=== PATIENT | female | born 1955 | race Caucasian/White ===

== ENCOUNTER 2016-12-26 22:03 | Observation (INO) | payer OTHER ==
[2016-12-26 22:10] VITALS: BMI 25.7
--- NOTE | 2016-12-26 22:50 | PDOC ---
History of Present Illness - General Chief Complaint: Shortness of Breath Stated Complaint: DIFFICULTY BREATHING Time Seen by Provider: 12/26/16 22:34 History Source: Patient Exam Limitations: No Limitations - History of Present Illness Initial Comments: 12/26/16 23:15 This is a 61 yo F brought in to the ER by her due to congestion She has a history of thyroid cancer diagnosed in 2009 s/p multiple chemotherapeutic agents to which the patient had adverse reactions Per the , this patient has been on a new chemotherapeutic agent since the beginning of this year she has also been getting radiation, with subsequent tongue swelling, vocal changes, difficulty speaking Pt was brought in to the ER by her due to congestion Pt was at her baseline when at approximately 8pm, she developed congestion No chest pain Her called the Oncologist and PMH: Migraines, thyroid cancer PSH: thyroidectomy, Cervical spine ayleen, Cancer resection from the left hip Meds: Dexamethasone, Pantoprazole, Calcitriol, Keppra ALL: IV contrast --> difficulty breathing Social: GENERAL/CONSTITUTIONAL: No: fever, chills, weakness, loss of appetite. HEAD, EYES, EARS, NOSE AND THROAT: Yes: tongue swelling, radiation changes No: change in vision, sore throat, throat swelling. CARDIOVASCULAR: No: chest pain, lightheadedness, palpitations, syncope RESPIRATORY: Yes: congestion, shortness of breath No: cough, wheezing GASTROINTESTINAL: No: nausea, vomiting, diarrhea, abdominal pain GENITOURINARY: No: dysuria, hematuria, MUSCULOSKELETAL: No: back pain, neck pain, joint pain SKIN AND BREASTS: No: lesions, pallor, rash or easy bruising. NEUROLOGIC: No: headache, vertigo, paresthesias, weakness ENDOCRINE: No: unexplained weight gain or loss HEMATOLOGIC/LYMPHATIC: No: anemia, easy bleeding, swelling nodes. GENERAL: The patient is in no acute distress, coarse breathing. HEAD: Normal with no signs of trauma. EYES: PERRLA, EOMI, sclera anicteric, conjunctiva clear. ENT: Ears normal, nares patent, oropharynx irritated, tongue swollen with white plaques NECK: Normal range of motion, supple without lymphadenopathy LUNGS: Rhoncherous, coarse breath sounds diffusely HEART: Regular rate and rhythm, normal S1 and S2 without murmur, rub or gallop. ABDOMEN: Soft, nontender, normoactive bowel sounds. No guarding, no rebound. EXTREMITIES: Normal range of motion, no edema. No clubbing or cyanosis. NEUROLOGICAL: Cranial nerves II through XII grossly intact. Normal speech. No focal neurological deficits. MUSCULOSKELETAL: Back non-tender to palpation, no CVA tenderness SKIN: Warm, Dry, normal turgor, no rashes or lesions noted. 12/27/16 01:51 12/27/16 01:58 12/27/16 02:15 Past History - Past Medical History Allergies/Adverse Reactions: Allergies Allergy/AdvReac Type Severity Reaction Status Date / Time iv contrast Allergy Uncoded 12/26/16 22:11 Home Medications: Ambulatory Orders Calcitriol 0 mg PO DAILY 12/27/16 Dexamethasone 1 mg PO DAILY 12/27/16 Keppra - 0 mg PO BID 12/27/16 Levothyroxine 0 mg PO DAILY 12/27/16 Pantoprazole Sodium [Protonix -] 20 mg PO BID 12/27/16 Cancer: Yes (thyroid) - Psycho/Social/Smoking Cessation Hx Suicidal Ideation: No Smoking History: Never smoked *Physical Exam - Vital Signs Last Vital Signs Temp Pulse Resp BP Pulse Ox 98.6 F 98 H 18 149/100 95 12/26/16 22:07 12/26/16 22:07 12/26/16 22:07 12/26/16 22:07 12/26/16 22:07 ED Treatment Course - LABORATORY CBC & Chemistry Diagram: 12/27/16 00:01 12/27/16 00:01 Medical Decision Making - Medical Decision Making Pt has a history on thyroid cancer on chemo and xrt presenting to the ER with a complaint of congestion No fevers or chills No chest pain Pt given Robitussin 12/27/16 01:10 Laboratory Tests 12/27/16 12/27/16 12/27/16 00:01 00:01 00:01 WBC 4.7 Hgb 11.0 Hct 34.7 Plt Count 148 Neutrophils % 76.2 Lymphocytes % 16.2 Sodium 139 Potassium 4.0 Chloride 101 Carbon Dioxide 28 BUN 24 H Creatinine 0.7 Random Glucose 92 Lactic Acid 1.280 12/27/16 01:14 Upon re assessment, congestion is better Pt is resting comfortably 12/27/16 01:[address] Guidry oncology department at [facility] She felt it was safest to keep this patient for observation case reviewed with Dr. Michaud Will place on observation 12/27/16 02:19 12/27/16 02:20 EXAM: X-ray chest IMAGES: 2 INDICATION: Shortness of breath DATE OF SERVICE: 2016-12-26 23:17:31.0 COMPARISON: none FINDINGS: Heart size is normal. Left basilar infiltrate is suspicious for pneumonia. No pleural effusion or pulmonary edema. Patient is likely status post cervical fusion. IMPRESSION: Suspected left basilar pneumonia. THIS DOCUMENT HAS BEEN ELECTRONICALLY SIGNED Tyrone Dhillon MD *DC/Admit/Observation/Transfer Diagnosis at time of Disposition: Chest congestion - Discharge Dispostion Condition at time of disposition: Stable Admit: Yes - Referrals Referrals: Angle Zurita MD [Primary Care Provider] -
[2016-12-27 00:23] LABS: BASOPHIL 0.3 % (0-2.0); EOSINOPHIL 2.5 % (0-4.5); MCH 25.7 pg (25.7-33.7); MCHC 31.6 g/dl (32.0-36.0); MEAN CELL VOLUME 81.1 fl (80-96); MEAN PLT VOLUME 7.2 fl (7.5-11.1); NEUTROPHILS 76.2 % (42.8-82.8); PLATELET COUNT 148 K/MM3 (134-434); RDW 17.5 % (11.6-15.6); WHITE BLOOD COUNT 4.7 K/mm3 (4.0-10.0)
[2016-12-27 00:45] LABS: ALBUMIN 3.7 g/dl (3.4-5.0); ALK PHOS 64 U/L (45-117); ANION GAP 10 (8-16); BILIRUBIN,TOTAL 0.5 mg/dL (0.2-1.0); CO2 28 mmol/L (21-32); COCKROFT - GAULT 91.7915; CREATININE 0.7 mg/dL (0.55-1.02); GLUCOSE,RANDOM 92 mg/dL (74-106); SGOT/AST 24 U/L (15-37); SGPT/ALT 28 U/L (12-78); TOT PROT 7.2 g/dl (6.4-8.2)
--- NOTE | 2016-12-27 02:08 | HP ---
Admitting History and Physical - Admission Chief Complaint: chest congestion History of Present Illness: 61 yo f w hx of thyroid cancer s/p multiple XRT and receiving chemo presents to the ER for chest congestion", she reports it started 3 days ago. She states she has been coughing up clear sputum. She denies sob, cp, fevers, chills, bodyaches , nausea, vomiting, diarrhea, rhinorrhea, sneezing. PMH/PSh- thyroid cancer s/p multiple XRT Social- Denies alcohol, tobacco, rec drugs Famhx- Denies famhx of cancer Ros neg except for HPI Physical Gen- in nad Hent-at/nc, thrush on tongue, tongue folded, neck supple, trachea mid-line Resp- lungs ctab, no ronchi, no rales, no wheeze Cards- s1s2 heard, no JVD, no leg edema Musk-normal arom bue/ble Skin- no erythema, intact Psych- cooperative, no agitation, forgetful Neuro-cn 2-12 grossly intact, speech clear, angella, no seizures Gi- soft non-tender, no rebound, no guarding, no rigidity Prob list ?PNA Oral john THyroid cancer A/P- 61 yo f w hx of thyroid cancer s/p multiple XRT who presents to the ER for eval of chest congestion and placed in obs for their emergent condition 1. ?PNA CXR suspicious for L basilar PNA Per ER attending oncologist recommends observation Started on LVQ BC pending 2. Oral john Nystatin solution Po 3. Thyroid cancer Pt reports on chemo(?name) and getting XRT opt FU w oncologist opt DVT prophy SCD, OOB, expect less than 2 night stay FEN Dispo- Obs for ? PNA History Source: Patient Limitations to Obtaining History: No Limitations - Smoking History Smoking history: Never smoked Home Medications - Allergies Allergies/Adverse Reactions: Allergies Allergy/AdvReac Type Severity Reaction Status Date / Time Iodinated Contrast Media - Allergy Verified 12/27/16 05:10 Oral and - Home Medications Home Medications: Ambulatory Orders Calcitriol 0.25 mg PO DAILY 12/27/16 Dexamethasone 1 mg PO DAILY 12/27/16 Fluconazole 100 mg PO DAILY #10 tablet 12/27/16 Keppra - 500 mg PO BID 12/27/16 Levofloxacin [Levaquin] 500 mg PO DAILY #4 tablet 12/27/16 Levothyroxine 75 mg PO DAILY 12/27/16 Pantoprazole Sodium [Protonix -] 20 mg PO BID 12/27/16 Physical Examination Vital Signs: Vital Signs Temperature 98.6 F 12/26/16 22:07 Pulse Rate 98 H 12/26/16 22:07 Respiratory Rate 18 12/26/16 22:07 Blood Pressure 149/100 12/26/16 22:07 O2 Sat by Pulse Oximetry (%) 95 12/26/16 22:07 Labs: CBC, BMP 12/27/16 00:01 12/27/16 00:01 Visit type - Emergency Visit Emergency Visit: Yes ED Registration Date: 12/27/16 Care time: The patient presented to the Emergency Department on the above date and was hospitalized for further evaluation of their emergent condition. - New Patient This patient is new to me today: Yes Date on this admission: 12/27/16 - Critical Care Critical Care patient: No
[2016-12-27] MEDS ORDERED: LEVOFLOXACIN 750 MG IVPB 150 ML IVPB ONE (02:13)
[2016-12-27] MEDS ORDERED: ONDANSETRON 4 MG/2 ML VIAL IVPB PRN (02:14)
[2016-12-27] MEDS ORDERED: ALBUTEROL SO4 2.5/IPRATROPIUM 0.5 INH SOL 3 ML VIAL.NEB. NEB PRN (02:15)
[2016-12-27] MEDS ORDERED: guaiFENesin/CODEINE 5 ML UNIT-DOSE CUPS PO PRN (02:15)
[2016-12-27] MEDS: ACETAMINOPHEN 325 MG TABLET (FP) PO PRN ×2 (03:19→12:32)
[2016-12-27] MEDS: NYSTATIN 500,000 UNITS/5 ML SUSPENSION PO SCH ×2 (06:33→12:31)
[2016-12-27 08:25] LABS: BASOPHIL 0.3 % (0-2.0); EOSINOPHIL 4.6 % (0-4.5); MCH 26.4 pg (25.7-33.7); MCHC 32.5 g/dl (32.0-36.0); MEAN CELL VOLUME 81.1 fl (80-96); MEAN PLT VOLUME 7.1 fl (7.5-11.1); NEUTROPHILS 71.9 % (42.8-82.8); PLATELET COUNT 130 K/MM3 (134-434); RDW 17.5 % (11.6-15.6); WHITE BLOOD COUNT 4.5 K/mm3 (4.0-10.0)
[2016-12-27 08:50] LABS: CALCIUM 8.6 mg/dL (8.5-10.1); COCKROFT - GAULT 91.7915; CREATININE 0.7 mg/dL (0.55-1.02)
[2016-12-27] MEDS ORDERED: DEXAMETHASONE 0.5 MG TABLET PO SCH (10:00)
[2016-12-27] MEDS ORDERED: PANTOPRAZOLE 20 MG TABLET (FP) PO SCH (10:00)
[2016-12-27] MEDS ORDERED: PT OWN MED DRAWER 7, Y5N ONE (10:17)
[2016-12-27] MEDS ORDERED: levETIRAcetam 500 MG TABLET (FP) PO SCH (12:00)
[2016-12-27] MEDS ORDERED: CALCITRIOL 0.25 MCG CAPSULE (FP) PO SCH (12:00)
[2016-12-27] MEDS ORDERED: LEVOTHYROXINE NA 75 MCG TABLET (FP) PO SCH (12:30)
[2016-12-27 14:16] VITALS: BP 122/73; PULSE 98; TEMP 98.1
--- NOTE | 2016-12-27 17:19 | DS ---
Physical Examination Vital Signs: Vital Signs Temperature 98.1 F 12/27/16 14:15 Pulse Rate 98 H 12/27/16 14:15 Respiratory Rate 18 12/27/16 14:15 Blood Pressure 122/73 12/27/16 14:15 O2 Sat by Pulse Oximetry (%) 98 12/27/16 09:00 Findings/Remarks: antonio any SOB, has cough with productionof smal amount of white sputum has no dysphagia or sore throat. No drooling. denied any fever at home .. her tongue bothers her . Constitutional: Yes: Well Nourished, No Distress, Calm Eyes: Yes: Conjunctiva Clear, EOM Intact HENT: Yes: Atraumatic, Normocephalic, Thrush (on tongue , oral mucosa and oropharynx), Other (no stridor). No: Drooling, Epistaxis, Hoarseness Neck: Yes: Supple Cardiovascular: Yes: Regular Rate and Rhythm, S1, S2. No: JVD, Murmur Respiratory: Yes: Regular, CTA Bilaterally Edema: No Labs: CBC, BMP 12/27/16 06:45 12/27/16 06:45 Discharge Summary Reason For Visit: CHEST CONGESTION Hospital Course: 61 y/o lady with h/o thyroid cancer s/p multiple XRT and receiving chemo presents to ER with cough and white sputum production, with no fever or CP . at presentation, her blood work did not show any leukocytosis or electrolyte abn. she also did not have fever or tachypnia . her cxray showed LLL infiltrate, and because she is immunocompromised , she was started on levaquin fro 5 days . she was found to have naseem-pharyngeal thrush and was started on fluconazol , as the rate of recurrence is less , adn she is on current steroids treatment and immunocompromised at the same time. Her LFTS were NL. She reported double vision in R eye but this has been chronic x 1 year, and she reported an MRI about a month ago. She is being w/u by her oncologist dispo : home today , has a walker and has 24 hr services. f/u with PCP and oncologist . Condition: Stable - Instructions Diet, Activity, Other Instructions: please follow with your doctor in few days follow with your oncologist as per your routine if you develop fever , or shortness of breath or if your phlegm turns green , please call your doctor . Take fluconazole for your fungal infection ( in mouth and throat ) for 10 days . if it does not resolve , you might need further treatment please take levaquin for possible pneumonia ( start tomorrow AM FOR 4 days ) Referrals: Angle Zurita MD [Primary Care Provider] - 1 Week Disposition: HOME - Home Medications Comprehensive Discharge Medication List: Ambulatory Orders Calcitriol 0.25 mg PO DAILY 12/27/16 Dexamethasone 1 mg PO DAILY 12/27/16 Fluconazole 100 mg PO DAILY #10 tablet 12/27/16 Keppra - 500 mg PO BID 12/27/16 Levofloxacin [Levaquin] 500 mg PO DAILY #4 tablet 12/27/16 Levothyroxine 75 mg PO DAILY 12/27/16 Pantoprazole Sodium [Protonix -] 20 mg PO BID 12/27/16 This patient is new to me today: Yes Date on this admission: 12/27/16 Emergency Visit: No Critical Care patient: No - Discharge Referral Referred to [facility] No
[2016-12-28] MEDS ORDERED: LEVOFLOXACIN 750 MG IVPB 150 ML IVPB SCH (10:00)
== END 2016-12-27 14:47 | disposition home or self-care (01) ==
LOC: JER 22:03 → JERBED 12-27 02:12 → J8W 12-27 04:26
PROVIDERS: ADMIT Internal Medicine; ATTEND Internal Medicine
DX: J18.9 Pneumonia, unspecified organism (principal); B37.0 Candidal stomatitis; C73 Malignant neoplasm of thyroid gland; Z92.21 Personal history of antineoplastic chemotherapy
CPT/HCPCS: 36415; 71010-TC; 80048; 80053; 83605; 85025; 87040; 99285-25; G0378; J8540

== ENCOUNTER 2017-01-15 23:50 | Inpatient (IN) | payer OTHER ==
[2017-01-16] MEDS ORDERED: ALBUTEROL SO4 2.5/IPRATROPIUM 0.5 INH SOL 3 ML VIAL.NEB. NEB ONE ×2 (01:29→02:10)
--- NOTE | 2017-01-16 01:44 | PDOC ---
History of Present Illness - General History Source: Patient Exam Limitations: No Limitations - History of Present Illness Initial Comments: 01/16/17 01:45 The patient is a 61 year old female with a significant past medical history of Thyroid CA s/p thyroid removal (on chemo) who presents to the ED with complaints of shortness of breath since earlier today. The patient was recently seen in the ED on 12/26/16 with similar symptoms and was diagnosed with pneumonia. Patient reports a sudden onset of shortness of breath and wheezing earlier this evening. Patient reports she feels like she is short of breath because her neck is swollen. Patient reports chills associated with present symptoms. She denies loss of appetite or changes in eating. Patients last chemo treatment was on 12/30/16, her next treatment is on . Denies fevers. Denies difficulty swallowing. Denies chest pain or palpitations. Denies headache or dizziness. Denies abdominal pain, nausea, vomiting, or diarrhea. Denies any other symptoms. <Justina Moser - Last Filed: 01/16/17 05:55> <Doris Guidry - Last Filed: 01/17/17 06:20> - General Chief Complaint: Shortness of Breath Stated Complaint: SOB Time Seen by Provider: 01/16/17 00:50 Past History <Justina Moser - Last Filed: 01/16/17 05:55> - Past Medical History Cancer: Yes (thyroid) GI Disorders: Yes (GERD) Seizures: Yes - Psycho/Social/Smoking Cessation Hx Anxiety: No Suicidal Ideation: No Smoking History: Never smoked Have you smoked in the past 12 months: No Information on smoking cessation initiated: No Hx Alcohol Use: No Drug/Substance Use Hx: No Substance Use Type: None <Doris Guidry - Last Filed: 01/17/17 06:20> - Past Medical History Allergies/Adverse Reactions: Allergies Allergy/AdvReac Type Severity Reaction Status Date / Time Iodinated Contrast Media - Allergy Verified 01/16/17 01:05 Oral and Home Medications: Ambulatory Orders Calcitriol 0.25 mg PO DAILY 12/27/16 Dexamethasone 1 mg PO DAILY 12/27/16 Fluconazole 100 mg PO DAILY #10 tablet 12/27/16 Keppra - 500 mg PO BID 12/27/16 Levofloxacin [Levaquin] 500 mg PO DAILY #4 tablet 12/27/16 Levothyroxine 75 mg PO DAILY 12/27/16 Pantoprazole Sodium [Protonix -] 20 mg PO BID 12/27/16 Unobtainable 01/16/17 Review of Systems - Review of Systems Able to Perform ROS?: Yes Comments:: 01/16/17 01:45 CONSTITUTIONAL: + chills Absent: fever, diaphoresis, generalized weakness, malaise, loss of appetite HEENT: + throat swelling Absent: rhinorrhea, nasal congestion, throat pain, difficulty swallowing, mouth swelling, ear pain, eye pain, visual Changes CARDIOVASCULAR: Absent: chest pain, syncope, palpitations, irregular heart rate, lightheadedness , peripheral edema RESPIRATORY: + shortness of breath, wheezing Absent: cough, dyspnea with exertion, orthopnea, stridor, hemoptysis GASTROINTESTINAL: Absent: abdominal pain, abdominal distension, nausea, vomiting, diarrhea, constipation, melena, hematochezia GENITOURINARY: Absent: dysuria, frequency, urgency, hesitancy, hematuria, flank pain, genital pain MUSCULOSKELETAL: Absent: myalgia, arthralgia, joint swelling SKIN: Absent: rash, itching, pallor HEMATOLOGIC/IMMUNOLOGIC: Absent: easy bleeding, easy bruising, lymphadenopathy, frequent infections ENDOCRINE: Absent: unexplained weight gain, unexplained weight loss, heat intolerance, cold intolerance NEUROLOGIC: Absent: headache, focal weakness or paresthesias, dizziness, unsteady gait, seizure, mental status changes, bladder or bowel incontinence PSYCHIATRIC: Absent: anxiety, depression, suicidal or homicidal ideation, hallucinations. <Justina Moser - Last Filed: 01/16/17 05:55> *Physical Exam - Vital Signs Last Vital Signs Temp Pulse Resp BP Pulse Ox 99.7 F H 93 H 24 156/86 95 01/16/17 01:01 01/16/17 01:01 01/16/17 01:01 01/16/17 01:01 01/16/17 01:01 - Physical Exam Comments: 01/16/17 01:45 GENERAL: voice is unchanged. Well developed, well nourished. Awake and alert. No acute distress. HEENT: + Eyes are proapoptotic, tongue deviates to left secondary to nerve damage from chemotherapy. Normocephalic, atraumatic. PERRLA, EOMI. No conjunctival pallor. Sclera are non-icteric. Moist mucous membranes. Oropharynx is clear. NECK: Supple. Full ROM. No JVD. Carotid pulses 2+ and symmetric, without bruits. No thyromegaly. NCo lymphadenopathy. CARDIOVASCULAR: Regular rate and rhythm. No murmurs, rubs, or gallops. Distal pulses are 2+ and symmetric. PULMONARY: + Wheezing in all lung gomez. Lungs clear to auscultation bilaterally. No rales or rhonchi. ABDOMINAL: Soft. Non-tender. Non-distended. No rebound or guarding. No organomegaly. Normoactive bowel sounds. MUSCULOSKELETAL Normal range of motion at all joints. No bony deformities or tenderness. No CVA tenderness. EXTREMITIES: No cyanosis. No clubbing. No edema. No calf tenderness. SKIN: Warm and dry. Normal capillary refill. No rashes. No jaundice. NEUROLOGICAL: Alert, awake, appropriate. Cranial nerves 2-12 intact. No deficits to light touch and temperature in face, upper extremities and lower extremities. No motor deficits in the in face, upper extremities and lower extremities. Normoreflexic in the upper and lower extremities. Normal speech. Toes are down- going bilaterally. Gait is normal without ataxia. PSYCHIATRIC: Cooperative. Good eye contact. Appropriate mood and affect. <Justina Moser - Last Filed: 01/16/17 05:55> - Vital Signs Last Vital Signs Temp Pulse Resp BP Pulse Ox 99.7 F H 93 H 24 156/86 95 01/16/17 01:01 01/16/17 01:01 01/16/17 01:01 01/16/17 01:01 01/16/17 01:01 <Doris Guidry - Last Filed: 01/17/17 06:20> ED Treatment Course - LABORATORY CBC & Chemistry Diagram: 01/16/17 05:33 01/16/17 05:33 <Justina Moser - Last Filed: 01/16/17 05:55> - LABORATORY CBC & Chemistry Diagram: 01/16/17 05:33 01/16/17 05:33 - RADIOLOGY Radiology Studies Ordered: Category Date Time Status CERVICAL SPINE CT W/O CONTR [CT] Stat CT Scan 01/16/17 01:[address] WITHOUT CONTRAST [CT] Stat CT Scan 01/16/17 01:29 Ordered <Doris Guidry - Last Filed: 01/17/17 06:20> Medical Decision Making - Medical Decision Making 01/16/17 02:[address] Jolly at 02:09. 01/16/17 05:[address] Aldana at 5:55 <Justina Moser - Last Filed: 01/16/17 05:55> - Medical Decision Making 01/16/17 04:22 Patient Name: Halina Perales THIS IS A PRELIMINARYREPORT FROM [facility] EXAM: X-ray chest IMAGES: 2 INDICATION: Shortness of breath DATE OF SERVICE: 2016-12-26 23:17:31.0 COMPARISON: none FINDINGS: Heart size is normal. Left basilar infiltrate is suspicious for pneumonia. No pleural effusion or pulmonary edema. Patient is likely status post cervical fusion. IMPRESSION: Suspected left basilar pneumonia. THIS DOCUMENT HAS BEEN ELECTRONICALLY SIGNED 01/16/17 05:22 Patient Name: Halina Perales THIS IS A PRELIMINARY REPORT FROM [facility] Exam: CT of the cervical spine without contrast Technique: Thin contiguous axial images through the cervical vertebra were obtained without use of contrast. Coronal and sagittal reconstructed images were generated. Number of images:203 Indication: Concern of local cord swelling, status post chemotherapy 2 weeks prior Date of service: 2017-01-16 03:59:05.0 Comparison: None Impression: 1. There is asymmetric soft tissue thickening at the level of the glottis on the right side. There is extension inferiorly to the subglottic region. This produces narrowing of the airway at the level of the glottis. Mass must be considered. 2. There is marked enlargement of the right thyroid lobe. This is consistent with malignancy given patient's history of thyroid cancer. 3. There are is a large destructive partially demonstrated expansile mass involving the clivus. Additionally, there is an expansile destructive lytic mass involving the spinous process of T1 and also an expansile destructive lytic mass involving the involving the anterior aspect of the left first rib. 4. There are a spinal fixation of C2-C5. 5. There is no definitive evidence of acute vertebral body compression fracture or subluxation seen. 6. There is evidence of severe bilateral mastoiditis and otitis media. Clinical correlation is advised for airway compromise. Please note, the study is suboptimal for evaluation of the pharynx. I recommend further evaluation with contrast-enhanced CT or MRI of the neck. 01/17/17 06:17 Pt admitted for dyspnea and swelling of her glottis. She has known thyroid tumor, and now comes after having had received chemo 2 weeks ago. Pt sees Dr. Rodrigues at [facility]. Her voice is unchanged from previous as per her . Pt has chronic pains secondary to her metastatic disease. She states that breathing is more difficult now than usual. She will be admitted for observation and for intubation as needed. Also ENT will be consulted for upper airway endoscopy. 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
[2017-01-16] MEDS ORDERED: RACEPINEPHRINE IH SOL 2.25% 11.25 MG/0.5 ML VIAL IH ONE (02:07)
[2017-01-16] MEDS ORDERED: RACEPINEPHRINE IH SOL 2.25% 11.25 MG/0.5 ML VIAL NEB ONE (02:10)
[2017-01-16 05:53] LABS: BASOPHIL 0.3 % (0-2.0); EOSINOPHIL 0.2 % (0-4.5); MCHC 31.9 g/dl (32.0-36.0); MEAN CELL VOLUME 81.6 fl (80-96); MEAN PLT VOLUME 7.5 fl (7.5-11.1); NEUTROPHILS 80.4 % (42.8-82.8); PLATELET COUNT 122 K/MM3 (134-434); RDW 16.7 % (11.6-15.6); WHITE BLOOD COUNT 5.5 K/mm3 (4.0-10.0)
[2017-01-16] MEDS ORDERED: DEXAMETHASONE SOD PHOSPHATE 10 MG/1 ML VIAL IVPB ONE (06:07)
[2017-01-16] MEDS ORDERED: DEXAMETHASONE SOD PHOSPHATE 10 MG/1 ML VIAL ONE (06:15)
[2017-01-16 06:20] LABS: ALBUMIN 3.5 g/dl (3.4-5.0); ALK PHOS 67 U/L (45-117); ANION GAP 11 (8-16); BILIRUBIN,TOTAL 0.4 mg/dL (0.2-1.0); CALCIUM 8.8 mg/dL (8.5-10.1); CO2 25 mmol/L (21-32); COCKROFT - GAULT 82.6115; CREATININE 0.7 mg/dL (0.55-1.02); GLUCOSE,RANDOM 100 mg/dL (74-106); SGPT/ALT 18 U/L (12-78)
[2017-01-16 06:24] LABS: SGOT/AST 33 U/L (15-37)
[2017-01-16] MEDS ORDERED: LEVOFLOXACIN 500 MG IVPB 100 ML IVPB ONE ×2 (08:33→09:14)
--- NOTE | 2017-01-16 10:18 | HP ---
Admitting History and Physical - Primary Care Physician PCP: Jenae Zurita - Admission Chief Complaint: sob x 2 days History of Present Illness: The patient is a 61 year old female with a significant past medical history of Thyroid CA s/p thyroid removal (on chemo) who presents to the ED with complaints of shortness of breath since earlier today. The patient was recently seen in the ED on 12/26/16 with similar symptoms and was diagnosed with pneumonia. Patient reports a sudden onset of shortness of breath and wheezing earlier this evening. Patient reports she feels like she is short of breath because her neck is swollen. Patient reports chills associated with present symptoms. She denies loss of appetite or changes in eating. Patients last chemo treatment was on 12/30/16, her next treatment is on . Denies fevers. Denies difficulty swallowing. Denies chest pain or palpitations. Denies headache or dizziness. Denies abdominal pain, nausea, vomiting, or diarrhea. Denies any other symptoms. case discussed with er physician artist consultant today chart reviewed case also discussed with icu attending today Pt seen / examined in icu at present comfortable denies pain. breathing ok denies fever/ +ve chills Denies abd pain denies headche/ dizziness Also restarted on abx for possible pneumonia History Source: Patient, Medical Record Limitations to Obtaining History: Clinical Condition - Smoking History Smoking history: Never smoked Have you smoked in the past 12 months: No - Alcohol/Substance Use Hx Alcohol Use: No Home Medications - Allergies Allergies/Adverse Reactions: Allergies Allergy/AdvReac Type Severity Reaction Status Date / Time Iodinated Contrast Media - Allergy Verified 01/16/17 01:05 Oral and - Home Medications Home Medications: Ambulatory Orders Calcitriol 0.25 mg PO DAILY 12/27/16 Dexamethasone 1 mg PO DAILY 12/27/16 Fluconazole 100 mg PO DAILY #10 tablet 12/27/16 Keppra - 500 mg PO BID 12/27/16 Levofloxacin [Levaquin] 500 mg PO DAILY #4 tablet 12/27/16 Levothyroxine 75 mg PO DAILY 12/27/16 Pantoprazole Sodium [Protonix -] 20 mg PO BID 12/27/16 Unobtainable 01/16/17 Review of Systems Unable to obtain ROS, reason: see [place] Physical Examination Vital Signs: Vital Signs Temperature 98.4 F 01/16/17 09:45 Pulse Rate 95 H 05/27/17 09:45 Respiratory Rate 13 01/16/17 09:45 Blood Pressure 112/79 01/16/17 09:45 O2 Sat by Pulse Oximetry (%) 95 01/16/17 09:45 Constitutional: Yes: Calm Eyes: Yes: Conjunctiva Clear HENT: Yes: Other (clear) Neck: Yes: Supple, Other (scar +) Cardiovascular: Yes: Regular Rate and Rhythm Respiratory: Yes: Rhonchi (scattered) Gastrointestinal: Yes: Normal Bowel Sounds, Soft Edema: No Imaging - Results Cat Scan: Report Reviewed Problem List - Problems (1) Glottic edema Code(s): J38.4 - EDEMA OF LARYNX (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 cc time 40 min
[2017-01-16] MEDS ORDERED: ACETAMINOPHEN 325 MG TABLET (FP) PO PRN (10:20)
--- NOTE | 2017-01-16 10:30 | CONSULT ---
Consult Consult Specialty:: PULM/CCM Referred by:: ANNA Reason for Consultation:: Abnormal CT - History of Present Illness Chief Complaint: SOB History of Present Illness: 61 F, Thyroid CA s/p thyroidectomy on chemotherapy and listed medical history. Admitted via the ER for shortness of breath of 1 to 2 days duration. No travel history or sick contacts. No fever or chills. No hemoptysis. Patient does report significant mucous production but does not feel that the mucous is pooling in her airway. No sensation of choking. No difficulty in swallowing. - History Source History Provided By: Patient Limitations to Obtaining History: Poor Historian - Alcohol/Substance Use Hx Alcohol Use: No - Smoking History Smoking history: Never smoked Have you smoked in the past 12 months: No Home Medications - Allergies Allergies/Adverse Reactions: Allergies Allergy/AdvReac Type Severity Reaction Status Date / Time Iodinated Contrast Media - Allergy Verified 01/16/17 01:05 Oral and - Home Medications Home Medications: Ambulatory Orders Calcitriol 0.25 mg PO DAILY 12/27/16 Dexamethasone 1 mg PO DAILY 12/27/16 Fluconazole 100 mg PO DAILY #10 tablet 12/27/16 Keppra - 500 mg PO BID 12/27/16 Levofloxacin [Levaquin] 500 mg PO DAILY #4 tablet 12/27/16 Levothyroxine 75 mg PO DAILY 12/27/16 Pantoprazole Sodium [Protonix -] 20 mg PO BID 12/27/16 Unobtainable 01/16/17 Review of Systems - Review of Systems Constitutional: reports: Malaise, Weakness. denies: Chills, Fever, Night Sweats Eyes: reports: No Symptoms HENT: reports: Nasal Congestion, Throat Pain. denies: Difficult Swallowing, Ear Discharge, Ear Pain, Gingival Bleeding, Hearing Loss, Mouth Swelling, Toothache, Ringing in Ears Neck: reports: Lumps, Stiffness Cardiovascular: reports: Shortness of Breath. denies: Chest Pain, Edema, Palpitations Respiratory: reports: Cough, Snoring, SOB, SOB on Exertion. denies: Hemoptysis , Wheezing Gastrointestinal: reports: No Symptoms Genitourinary: reports: No Symptoms Breasts: reports: No Symptoms Reported Musculoskeletal: reports: No Symptoms Integumentary: reports: No Symptoms Neurological: reports: No Symptoms Endocrine: reports: No Symptoms Hematology/Lymphatic: reports: No Symptoms Psychiatric: reports: No Symptoms Physical Exam Vital Signs: Vital Signs Temperature 98.7 F 01/16/17 10:20 Pulse Rate 100 H 01/16/17 10:20 Respiratory Rate 18 01/16/17 10:20 Blood Pressure 144/90 01/16/17 10:20 O2 Sat by Pulse Oximetry (%) 95 01/16/17 09:45 Constitutional: Yes: No Distress Eyes: Yes: Conjunctiva Clear, EOM Intact HENT: Yes: Atraumatic, Normocephalic Neck: Yes: Supple, Trachea Midline Cardiovascular: Yes: Regular Rate and Rhythm Respiratory: Yes: Cough, On Nasal O2, Rhonchi. No: Accessory Muscle Use, Rales , SOB, Stridor, Tachypnea, Wheezes Gastrointestinal: Yes: Normal Bowel Sounds, Soft ...Rectal Exam: Yes: Deferred Renal/: Yes: WNL Musculoskeletal: Yes: Back Pain Extremities: Yes: WNL Edema: No Peripheral Pulses WNL: Yes Integumentary: Yes: WNL Neurological: Yes: WNL, Alert, Oriented ...Motor Strength: WNL Psychiatric: Yes: WNL, Alert, Oriented Imaging - Results Cat Scan: Report Reviewed, Image Reviewed Problem List - Problems (1) Glottic edema Code(s): J38.4 - EDEMA OF LARYNX (2) Glottic stenosis Code(s): J38.6 - STENOSIS OF LARYNX (3) Metastasis from thyroid cancer Code(s): C79.9 - SECONDARY MALIGNANT NEOPLASM OF UNSPECIFIED SITE C73 - MALIGNANT NEOPLASM OF THYROID GLAND (4) SOB (shortness of breath) Code(s): R06.02 - SHORTNESS OF BREATH (5) Thyroid malignant neoplasm Code(s): C73 - MALIGNANT NEOPLASM OF THYROID GLAND (6) Chest congestion Code(s): R09.89 - OTH SYMPTOMS AND SIGNS INVOLVING THE CIRC AND RESP SYSTEMS Assessment/Plan Steroids Noted empiric ABX O2 as needed Would keep NPO until she is evaluated by ENT (they have been called) VTE prophylaxis Decolonization ICU monitoring Thank you Dr Luong critical care time spent in reviewing chart, evaluating patient and formulating plan 40 min
[2017-01-16] MEDS ORDERED: ALBUTEROL SO4 0.083% IH SOL 2.5 MG/3 ML VIAL.NEB. NEB PRN (10:38)
[2017-01-16 10:45] VITALS: BMI 11.7
[2017-01-16] MEDS ORDERED: DEXAMETHASONE 0.5 MG TABLET PO SCH (11:30)
[2017-01-16] MEDS: ENOXAPARIN NA (PORCINE) 40 MG/0.4 ML DISP.SYRIN SQ SCH (13:39)
[2017-01-16] MEDS: DEXAMETHASONE SOD PHOSPHATE 10 MG/1 ML VIAL IVPB SCH (17:13)
[2017-01-16 20:13] VITALS: TEMP 98.4
--- NOTE | 2017-01-16 20:48 | CON.ENT ---
Consult Consult Specialty:: ENT Referred by:: Dr. Luong Reason for Consultation:: thyroid cancer, throat symptoms - History of Present Illness Chief Complaint: throat symptoms, breathing trouble History of Present Illness: 61 yo F with known hx of metastatic thyroid carcinoma, s/p surgery, presently undergoing chemotherapy at [facility], last treatment several weeks ago, next treatment scheduled for within one week. presented to Emergency department last night with throat symptoms and some breathing trouble had recent ED visit early December 2016 dx pneumonia and had outpatient oral antibiotic therapy treated with nebulizer treatment and oral steroids presently feeling better with breathing - History Source History Provided By: Patient, Medical Record - Past Medical History Heme/Onc: Yes: Cancer (metastatic thyroid cancer) - Alcohol/Substance Use Hx Alcohol Use: No - Smoking History Smoking history: Never smoked Have you smoked in the past 12 months: No Home Medications - Allergies Allergies/Adverse Reactions: Allergies Allergy/AdvReac Type Severity Reaction Status Date / Time Iodinated Contrast Media - Allergy Verified 01/16/17 01:05 Oral and - Home Medications Home Medications: Ambulatory Orders Calcitriol 0.25 mg PO DAILY 12/27/16 Dexamethasone 1 mg PO DAILY 12/27/16 Fluconazole 100 mg PO DAILY #10 tablet 12/27/16 Keppra - 500 mg PO BID 12/27/16 Levofloxacin [Levaquin] 500 mg PO DAILY #4 tablet 12/27/16 Levothyroxine 75 mg PO DAILY 12/27/16 Pantoprazole Sodium [Protonix -] 20 mg PO BID 12/27/16 Unobtainable 01/16/17 Physical Exam-ENT Vital Signs: Vital Signs Temperature 98.4 F 01/16/17 20:00 Pulse Rate 90 01/16/17 20:00 Respiratory Rate 12 01/16/17 20:23 Blood Pressure 112/77 01/16/17 20:00 O2 Sat by Pulse Oximetry (%) 95 01/16/17 20:23 Constitutional: Yes: No Distress, Calm Head: Yes: WNL Face: Yes: WNL Eyes: Yes: WNL Nose: Yes: Other (mild mucosal edema, clear mucus, no bleeding polyp or pus) Nasal Passage: Yes: WNL Oral/Pharynx: Yes: WNL, Other (flexible laryngoscopy: nasopharynx sl edema, no mass, base of tongue WNL, vallecula normal, epiglottis normal, arytenoids +edema , true vocal cords no lesions but +right vocal cord paralysis, left cord has good adduction and fair approximation on phonation, left vocal cord abduction limited. cannot visualize subglottic area well because of the limited glottic opening on inspiration.) Outer Ear: Yes: WNL (hearing loss, wears hearing aid) Neck: Yes: Other (thyroid enlarged) Imaging - Results Cat Scan: Report Reviewed, Image Reviewed (CT neck (cervical spine) ++bony disease, s/p cervical fusion posterior (to occiput); airway asymmetry suggesting right vocal cord paralysis CT chest +extensive bilateral metastatic disease, large right substernal thyroid mass, also bronchial compression right lower lobe, chest wall disease/pleural disease, bony lytic lesions. possible subglottic narrowing from soft tissue (assume tumor)) Problem List - Problems (1) Glottic stenosis Assessment/Plan: patient has a stable airway and no distress, no stridor or complaints glottic opening is limited by right vocal cord paralysis and limited left vocal cord abduction subglottis cannot be seen with endoscope but appears narrowed on CT scan Recommend: airway observation, oxygen aspiration precautions, ok to start po with thick liquids pt has thyroid cancer as well as an abnormal upper trachea if airway intervention is required, suggest either orotracheal intubation with a small tube, or LMA active disease in neck and (suspected) in upper trachea would make tracheotomy contraindicated. Code(s): J38.6 - STENOSIS OF LARYNX (2) Thyroid malignant neoplasm Assessment/Plan: significant advanced metastatic disease under care of [place] [facility] Recommend:contact pts treating physicians for coordination of care ?transfer if they request. Thank you for consultation, Nilay Jolly MD FACS Code(s): C73 - MALIGNANT NEOPLASM OF THYROID GLAND
[2017-01-16] MEDS: MUPIROCIN 2% TOPICAL OINTMENT FOR DECOLONIZATION NS SCH (21:16)
[2017-01-16] MEDS: levETIRAcetam 500 MG TABLET (FP) PO SCH (21:17)
[2017-01-16] MEDS: PANTOPRAZOLE 20 MG TABLET (FP) PO SCH (21:17)
[2017-01-16] MEDS ORDERED: CHLORHEXIDINE GLUCONATE 4% CLEANSER FOR DECOLONIZATION TP SCH (22:00)
[2017-01-17] MEDS: DEXAMETHASONE SOD PHOSPHATE 10 MG/1 ML VIAL IVPB SCH ×2 (01:19→09:47)
[2017-01-17] MEDS ORDERED: LEVOTHYROXINE NA 75 MCG TABLET (FP) PO SCH (06:00)
[2017-01-17 06:13] LABS: BASOPHIL 0.1 % (0-2.0); MCH 26.1 pg (25.7-33.7); MCHC 32.3 g/dl (32.0-36.0); MEAN CELL VOLUME 80.7 fl (80-96); MEAN PLT VOLUME 7.6 fl (7.5-11.1); NEUTROPHILS 90.1 % (42.8-82.8); PLATELET COUNT 145 K/MM3 (134-434); RDW 16.5 % (11.6-15.6); WHITE BLOOD COUNT 4.6 K/mm3 (4.0-10.0)
[2017-01-17 06:44] LABS: ALBUMIN 3.2 g/dl (3.4-5.0); ANION GAP 11 (8-16); CALCIUM 8.9 mg/dL (8.5-10.1); CO2 28 mmol/L (21-32); GLUCOSE,RANDOM 126 mg/dL (74-106)
[2017-01-17 06:49] LABS: ALK PHOS 62 U/L (45-117); BILIRUBIN,TOTAL 0.6 mg/dL (0.2-1.0); CREATININE 0.8 mg/dL (0.55-1.02); SGOT/AST 14 U/L (15-37); SGPT/ALT 16 U/L (12-78); TOT PROT 6.7 g/dl (6.4-8.2)
[2017-01-17] MEDS ORDERED: PT OWN MED DRAWER 7, Y5N ONE (09:30)
[2017-01-17] MEDS ORDERED: levETIRAcetam 500 MG/5 ML INJECTION VIAL IVPB ONE (09:43)
[2017-01-17] MEDS: PANTOPRAZOLE 20 MG TABLET (FP) PO SCH (09:48)
[2017-01-17] MEDS: levETIRAcetam 500 MG TABLET (FP) PO SCH (09:48)
[2017-01-17] MEDS: ENOXAPARIN NA (PORCINE) 40 MG/0.4 ML DISP.SYRIN SQ SCH (09:49)
[2017-01-17] MEDS ORDERED: CALCITRIOL 0.25 MCG CAPSULE (FP) PO SCH (10:00)
[2017-01-17] MEDS ORDERED: CEFTRIAXONE 50 ML IVPB SCH (10:00)
[2017-01-17] MEDS ORDERED: FLUCONAZOLE 100 MG TABLET (UD) PO SCH (10:00)
--- NOTE | 2017-01-17 10:00 | PN ---
Progress Note (short form) - Note Progress Note: Patient seen and examined in the ICU. Awake and alert. D/W ENT yesterday. For now airway seems stable. Some dry cough. No CP or SOB. Intake & Output 01/14/17 01/15/17 01/16/17 01/17/17 23:59 23:59 23:59 23:59 Intake Total 470 200 Output Total 650 500 Balance -180 -300 Weight 68 lb 4.8 oz Last Vital Signs Temp Pulse Resp BP Pulse Ox 98.4 F 109 H 12 115/80 95 01/17/17 04:00 01/17/17 08:00 01/17/17 09:00 01/17/17 08:00 01/16/17 20:23 Active Medications Acetaminophen (Tylenol -) 650 mg PO Q4H PRN PRN Reason: FEVER OR PAIN Albuterol Sulfate (Ventolin 0.083% Nebulizer Soln -) 1 amp NEB Q4H PRN PRN Reason: SHORT OF BREATH/WHEEZING Calcitriol (Rocaltrol -) 0.25 mcg PO DAILY [facility] Last Admin: 01/17/17 09:48 Dose: 0.25 mcg Chlorhexidine Gluconate (Hibiclens For Decolonization -) 1 applic TP HS [facility] Last Admin: 01/16/17 21:16 Dose: 1 applic Dexamethasone Sodium Phosphate (Decadron Injection -) 10 mg IVPB Q8H-IV [facility] Last Admin: 01/17/17 09:47 Dose: 10 mg Enoxaparin Sodium (Lovenox -) 40 mg SQ DAILY [facility] Last Admin: 01/17/17 09:49 Dose: 40 mg Fluconazole (Diflucan -) 100 mg PO DAILY [facility] Last Admin: 01/17/17 09:48 Dose: 100 mg Ceftriaxone Sodium (Rocephin 1gm Ivpb (Pre-Docked)) 50 mls @ 100 mls/hr IVPB DAILY [facility] Last Admin: 01/17/17 09:48 Dose: 100 mls/hr Levetiracetam (Keppra -) 500 mg PO BID [facility] Last Admin: 01/17/17 09:48 Dose: 500 mg Levothyroxine Sodium (Synthroid -) 75 mcg PO DAILY@0600 [facility] Last Admin: 01/17/17 06:19 Dose: 75 mcg Mupirocin (Bactroban Ointment (For Decolonization) -) 1 applic NS BID [facility] Stop: 01/21/17 21:59 Last Admin: 01/16/17 21:16 Dose: 1 applic Pantoprazole Sodium (Protonix -) 20 mg PO BID [facility] Last Admin: 01/17/17 09:48 Dose: 20 mg Constitutional: Yes: No Distress Eyes: Yes: Conjunctiva Clear, EOM Intact HENT: Yes: Atraumatic, Normocephalic Neck: Yes: Supple, Trachea Midline, NO STRIDOR Cardiovascular: Yes: Regular Rate and Rhythm Respiratory: Yes: Cough, On Nasal O2, Rhonchi. No: Accessory Muscle Use, Rales , SOB, Stridor, Tachypnea, Wheezes Gastrointestinal: Yes: Normal Bowel Sounds, Soft ...Rectal Exam: Yes: Deferred Renal/: Yes: WNL Musculoskeletal: Yes: Back Pain Extremities: Yes: WNL Edema: No Peripheral Pulses WNL: Yes Integumentary: Yes: WNL Neurological: Yes: WNL, Alert, Oriented ...Motor Strength: WNL Psychiatric: Yes: WNL, Alert, Oriented Laboratory Results - last 24 hr 01/17/17 01/17/17 05:20 05:20 WBC 4.6 RBC 4.03 Hgb 10.5 L Hct 32.5 MCV 80.7 MCHC 32.3 RDW 16.5 H Plt Count 145 MPV 7.6 Neutrophils % 90.1 H Lymphocytes % 6.7 L Monocytes % 3.1 L Eosinophils % 0.0 D Basophils % 0.1 Sodium 142 Potassium 4.2 Chloride 103 Carbon Dioxide 28 Anion Gap 11 BUN 23 H D Creatinine 0.8 Creat Clearance w eGFR > 60 Random Glucose 126 H D Calcium 8.9 Total Bilirubin 0.6 D AST 14 L D ALT 16 Alkaline Phosphatase 62 Total Protein 6.7 Albumin 3.2 L Problem List - Problems (1) Glottic edema Code(s): J38.4 - EDEMA OF LARYNX (2) Glottic stenosis Code(s): J38.6 - STENOSIS OF LARYNX (3) Metastasis from thyroid cancer Code(s): C79.9 - SECONDARY MALIGNANT NEOPLASM OF UNSPECIFIED SITE C73 - MALIGNANT NEOPLASM OF THYROID GLAND (4) SOB (shortness of breath) Code(s): R06.02 - SHORTNESS OF BREATH (5) Thyroid malignant neoplasm Code(s): C73 - MALIGNANT NEOPLASM OF THYROID GLAND (6) Chest congestion Code(s): R09.89 - OTH SYMPTOMS AND SIGNS INVOLVING THE CIRC AND RESP SYSTEMS Assessment/Plan Steroids Monitor off empiric ABX O2 as needed PO as tolerated VTE prophylaxis Decolonization Floor Dr Luong critical care time spent in reviewing chart, evaluating patient and formulating plan 35 min Problem List - Problems (1) Glottic edema Code(s): J38.4 - EDEMA OF LARYNX (2) Glottic stenosis Code(s): J38.6 - STENOSIS OF LARYNX (3) Metastasis from thyroid cancer Code(s): C79.9 - SECONDARY MALIGNANT NEOPLASM OF UNSPECIFIED SITE C73 - MALIGNANT NEOPLASM OF THYROID GLAND (4) SOB (shortness of breath) Code(s): R06.02 - SHORTNESS OF BREATH (5) Thyroid malignant neoplasm Code(s): C73 - MALIGNANT NEOPLASM OF THYROID GLAND (6) Chest congestion Code(s): R09.89 - OTH SYMPTOMS AND SIGNS INVOLVING THE CIRC AND RESP SYSTEMS
[2017-01-17] MEDS: MUPIROCIN 2% TOPICAL OINTMENT FOR DECOLONIZATION NS SCH (10:25)
--- NOTE | 2017-01-17 10:37 | DS ---
Physical Examination Vital Signs: Vital Signs Temperature 98.4 F 01/17/17 04:00 Pulse Rate 109 H 01/17/17 08:00 Respiratory Rate 12 01/17/17 09:00 Blood Pressure 115/80 01/17/17 08:00 O2 Sat by Pulse Oximetry (%) 95 01/16/17 20:23 Findings/Remarks: feels well eating ok. ent consult noted/ appreciated Constitutional: Yes: No Distress, Calm Eyes: Yes: Conjunctiva Clear Neck: Yes: Supple Cardiovascular: Yes: Regular Rate and Rhythm Respiratory: Yes: CTA Bilaterally Gastrointestinal: Yes: Normal Bowel Sounds, Soft Edema: No Labs: CBC, BMP 01/17/17 05:20 01/17/17 05:20 Discharge Summary Reason For Visit: EDEMA OF GLOTTIS,MALIGNANT NEOPLASM, OF THYROID Current Active Problems Glottic edema (Acute) Glottic stenosis (Acute) Metastasis from thyroid cancer (Acute) SOB (shortness of breath) (Acute) Thyroid malignant neoplasm (Acute) Hospital Course: admitted due to sob. work up shows metastatic thyrid ca-- glottis edema/ papralized vocal cord clinically stable pt follows with her oncology team at [place] discussed with icu Attending also will d/c today - home f/u this week with her oncology team Discussed with pt/ pts both agree with plan Dexamethasone increased -- meds reconcilled d/c time 40 min in examining/ cordating care as well as documenting discussed with nursing staff also Condition: Poor - Instructions Referrals: Angle Zurita MD [Primary Care Provider] - Disposition: HOME - Home Medications Comprehensive Discharge Medication List: Ambulatory Orders Calcitriol 0.25 mg PO DAILY 12/27/16 Fluconazole 100 mg PO DAILY #10 tablet 12/27/16 Keppra - 500 mg PO BID 12/27/16 Levothyroxine 75 mg PO DAILY 12/27/16 Pantoprazole Sodium [Protonix -] 20 mg PO BID 12/27/16 Acetaminophen [Tylenol .Regular Strength -] 650 mg PO Q4H PRN #0 tablet Dexamethasone 4 mg PO BID #30 tablet 01/17/17
[2017-01-17 14:17] VITALS: BP 110/75; PULSE 91
--- NOTE | 2017-01-18 10:26 | EKG ---
Test Reason : Blood Pressure : / mmHG Vent. Rate : 101 BPM Atrial Rate : 101 BPM P-R Int : 126 ms QRS Dur : 080 ms QT Int : 338 ms P-R-T Axes : 036 -14 035 degrees QTc Int : 438 ms SINUS TACHYCARDIA MODERATE VOLTAGE CRITERIA FOR LVH, MAY BE NORMAL VARIANT BORDERLINE ECG NO PREVIOUS ECGS AVAILABLE Confirmed by WILBERT MÁRQUEZ, TONY ([id number]) on 01/18/2017 10:26:01 AM Referred By: Confirmed By:TONY ATKINS MD
== END 2017-01-17 15:17 | disposition home or self-care (01) | DRG 424 ==
LOC: JER 23:50 → JERBED 01-16 05:59 → JICU 01-16 10:18
PROVIDERS: ADMIT Internal Medicine; ATTEND Internal Medicine
DX: C73 Malignant neoplasm of thyroid gland (principal); J38.6 Stenosis of larynx; J38.4 Edema of larynx; J38.01 Paralysis of vocal cords and larynx, unilateral; R06.02 Shortness of breath
CPT/HCPCS: 36415; 71250-TC; 72125-TC; 80053; 85025; 87040; 93005; 93010; 99284-25